=== PATIENT | female | born 1950 | race Caucasian/White ===

== ENCOUNTER 2017-02-04 08:52 | Day surgery (SDC) | payer OTHER ==
[2017-01-30 12:33] VITALS: BMI 29.0
[2017-02-04] MEDS ORDERED: PROPOFOL 20 ML ONE ×2 (09:15)
[2017-02-04 11:12] VITALS: TEMP 97.3
[2017-02-04 12:01] VITALS: BP 122/78; PULSE 68
== END 2017-02-04 11:35 | disposition home or self-care (01) ==
LOC: FASU-ENDO 08:52
PROVIDERS: ATTEND Internal Medicine Gastroenterology
PROC: 0DJD8ZZ Inspection of Lower Intestinal Tract, Via Natural or Artificial Opening Endoscopic (ICD-10-PCS; principal; 2017-02-04 10:35)
DX: Z12.11 Encounter for screening for malignant neoplasm of colon (principal); Z80.0 Family history of malignant neoplasm of digestive organs; K57.30 Diverticulosis of large intestine without perforation or abscess without bleeding; Z83.71 Family history of colonic polyps